=== PATIENT | male | born 1975 | race Caucasian/White ===

== ENCOUNTER 2018-11-21 10:27 | Inpatient (IN) ==
[2018-11-21] MEDS ORDERED: LORazepam 2 MG/1 ML VIAL IV STA (11:24)
[2018-11-21] MEDS ORDERED: THIAMINE INJ 100 MG, FOLIC ACID INJ 1 MG, MAGNESIUM SULF INJ 2 GM, MULTIVITAMIN INJ 10 ... IV ONE (11:24)
[2018-11-21 11:36] LABS: Basophils % 0.2 % (0.0-0.8); Hematocrit 46.9 VOL% (42.0-52.0); Hemoglobin 15.8 GM/DL (14.0-18.0); Immature Granulocytes Absolute 0.11 #; Lymphocytes # 0.8 10*3/uL (1.4-4.0); Lymphocytes % 6.7 % (21.2-54.2); Mean Corpuscular HGB Conc 33.7 GM/DL (32-36); Mean Corpuscular Hemoglobin 36 PG (27-34); Mean Corpuscular Volume 105.9 FL (87-102); Mean Platelet Volume 10.4 FL (9.6-12.0); Monocytes # 1.7 10*3/uL (0.11-0.8); Monocytes % 14.5 % (1.7-12.7); NRBC # 0.02 10*3/uL; Neutrophils # 8.8 10*3/uL (1.4-7.4); Neutrophils % 77.6 % (38.7-73.9); Platelet Count 114 T/CUMM (130-400); Red Blood Count 4.43 MC/CUMM (3.8-5.5); Red Cell Distribution Width 12.3 % (9.3-17.3); White Blood Count 11.4 T/CUMM (4-12)
[2018-11-21 11:55] LABS: Alanine Aminotransferase 109 U/L (16-61); Albumin 4.3 G/DL (3.4-5.0); Alkaline Phosphatase 104 U/L (45-117); Aspartate Amino Transferase 614 U/L (0-37); Blood Urea Nitrogen 35 MG/DL (7-18); Calcium 8.4 MG/DL (8.5-10.1); Glucose 78 MG/DL (74-106); Osmolality,Calculated 263.1 MOS/KG (273-304); Potassium 3.1 MMOL/L (3.5-5.1); Sodium 128 MMOL/L (136-145); Total Protein 9.1 G/DL (6.4-8.3)
[2018-11-21 13:12] LABS: Apearance,Urine CLOUDY (Clear); Bilirubin,Urine Negative (Negative); Blood, Urine Large mg/dL (Negative); Glucose,Urine (UA) Negative (Negative); Hyaline Casts,Urine 44 /LPF (0-3); Ketones,Urine 80 mg/dL (Negative); Mucus,Urine Occasional /LPF (Occasional); Nitrite,Urine Negative (Negative); Protein,Urine 100 MG/DL; RBC,Urine 1 /HPF (0-4); Urine Color Amber (Yellow); WBC,Urine 4 /HPF (0-6)
[2018-11-21 13:30] LABS: Barbiturates Screen,Urine Negative (Negative); Benzodiazepines Screen,Urine Negative (Negative); Cannabinoid Screen,Urine Negative (Negative); Opiate Screen,Urine Negative (Negative); Phencyclidine Screen,Urine Negative (Negative)
[2018-11-21] MEDS ORDERED: ONDANSETRON 4 MG/2 ML VIAL IV PRN (13:31)
[2018-11-21] MEDS ORDERED: NICOTINE 21 MG/24 HR PATCH TRANSDERM PRN (13:31)
[2018-11-21] MEDS: LORazepam 2 MG/1 ML VIAL IV PRN ×9 (13:33→22:26)
[2018-11-21] MEDS: DIAZEPAM 5 MG TABLET PO SCH ×7 (13:43→23:50)
[2018-11-21] MEDS: SODIUM CHLORIDE 0.9% 1,000 ML IV SCH ×3 (13:43→22:23)
[2018-11-21 14:18] LABS: CKMB % 0.2 %; Troponin I 0.064 NG/ML (0.00-0.045)
[2018-11-21] MEDS: PANTOPRAZOLE 40 MG TABLET PO SCH (15:38)
[2018-11-21] MEDS: ENOXAPARIN 40 MG/0.4 ML SYRINGE SUBCUT SCH (15:40)
[2018-11-21] MEDS ORDERED: OLANZapine 10 MG VIAL IM ONE (23:20)
[2018-11-22] MEDS ORDERED: HALOPERIDOL 5 MG/ML AMP IV ONE (01:29)
[2018-11-22] MEDS: LORazepam 2 MG/1 ML VIAL IV PRN ×7 (01:55→15:08)
[2018-11-22] MEDS: DIAZEPAM 5 MG TABLET PO SCH ×21 (02:33→23:15)
[2018-11-22] MEDS: SODIUM CHLORIDE 0.9% 1,000 ML IV SCH ×4 (04:55→18:18)
[2018-11-22 05:39] LABS: Basophils % 0.2 % (0.0-0.8); Eosinophils % 0.1 % (0.00-10.9); Hematocrit 39.7 VOL% (42.0-52.0); Immature Granulocytes % 0.9 %; Immature Granulocytes Absolute 0.08 #; Lymphocytes % 11.1 % (21.2-54.2); Mean Corpuscular HGB Conc 33.2 GM/DL (32-36); Mean Corpuscular Hemoglobin 36 PG (27-34); Mean Corpuscular Volume 107.9 FL (87-102); Mean Platelet Volume 10.2 FL (9.6-12.0); Monocytes # 1.8 10*3/uL (0.11-0.8); Monocytes % 19.2 % (1.7-12.7); Neutrophils # 6.4 10*3/uL (1.4-7.4); Neutrophils % 68.5 % (38.7-73.9); Platelet Count 114 T/CUMM (130-400); Red Blood Count 3.68 MC/CUMM (3.8-5.5); Red Cell Distribution Width 12.5 % (9.3-17.3); White Blood Count 9.4 T/CUMM (4-12)
[2018-11-22 05:54] LABS: Calcium 7.7 MG/DL (8.5-10.1); Potassium 3.9 MMOL/L (3.5-5.1)
[2018-11-22 05:55] LABS: Hemoglobin 13.2 GM/DL (14.0-18.0)
[2018-11-22 06:20] LABS: Lymphocytes 9 % (20-55); Platelet Estimate Decreased; Polychromasia Slight; Segmented Neutrophils 82 % (50-85); Total Cells Counted 100
[2018-11-22] MEDS: PANTOPRAZOLE 40 MG TABLET PO SCH (08:50)
[2018-11-22] MEDS ORDERED: HALOPERIDOL 5 MG/ML AMP IV PRN (09:16)
[2018-11-22] MEDS: ENOXAPARIN 40 MG/0.4 ML SYRINGE SUBCUT SCH (14:22)
[2018-11-23] MEDS: DIAZEPAM 5 MG TABLET PO SCH ×23 (00:22→22:12)
[2018-11-23] MEDS: SODIUM CHLORIDE 0.9% 1,000 ML IV SCH ×2 (00:35→07:49)
[2018-11-23] MEDS: DEXTROSE 5% LACTATED RINGERS 1,000 ML IV SCH ×3 (09:51→23:38)
[2018-11-23] MEDS: PANTOPRAZOLE 40 MG TABLET PO SCH (12:15)
[2018-11-23] MEDS: ENOXAPARIN 40 MG/0.4 ML SYRINGE SUBCUT SCH (16:04)
[2018-11-24] MEDS: DIAZEPAM 5 MG TABLET PO SCH ×10 (00:24→08:59)
[2018-11-24 03:26] LABS: Basophils % 0.4 % (0.0-0.8); Eosinophils # 0.1 10*3/uL (0.0-0.87); Eosinophils % 1.8 % (0.00-10.9); Hematocrit 35.5 VOL% (42.0-52.0); Immature Granulocytes % 0.6 %; Immature Granulocytes Absolute 0.03 #; Lymphocytes # 0.7 10*3/uL (1.4-4.0); Lymphocytes % 14.7 % (21.2-54.2); Mean Corpuscular HGB Conc 33.8 GM/DL (32-36); Mean Corpuscular Hemoglobin 35 PG (27-34); Mean Corpuscular Volume 104.1 FL (87-102); Mean Platelet Volume 9.5 FL (9.6-12.0); Monocytes # 1.2 10*3/uL (0.11-0.8); Monocytes % 24.5 % (1.7-12.7); Neutrophils # 2.8 10*3/uL (1.4-7.4); Platelet Count 146 T/CUMM (130-400); Red Blood Count 3.41 MC/CUMM (3.8-5.5); Red Cell Distribution Width 12.7 % (9.3-17.3); White Blood Count 4.9 T/CUMM (4-12)
[2018-11-24 03:40] LABS: Calcium 7.8 MG/DL (8.5-10.1); Osmolality,Calculated 280.4 MOS/KG (273-304)
[2018-11-24 03:44] LABS: Potassium 2.5 MMOL/L (3.5-5.1)
[2018-11-24 03:49] LABS: Band Neutrophils 1 % (0-10); Eosinophils 5 % (0-10); Lymphocytes 15 % (20-55); Segmented Neutrophils 59 % (50-85); Total Cells Counted 100
[2018-11-24 04:00] LABS: Atypical Lymphocytes 1+; Platelet Estimate Normal
[2018-11-24] MEDS ORDERED: POTASSIUM CHLORIDE 20 MEQ TABLET PO ONE (04:00)
[2018-11-24] MEDS: POTASSIUM CHLORIDE RIDER 10 MEQ in PREMIX 1 EACH IV SCH ×4 (04:26→07:33)
[2018-11-24] MEDS: PANTOPRAZOLE 40 MG TABLET PO SCH (08:58)
[2018-11-24] MEDS: POTASSIUM CHLORIDE 20 MEQ TABLET PO SCH ×4 (11:43→20:38)
[2018-11-24] MEDS: DEXTROSE 5% LACTATED RINGERS 1,000 ML IV SCH ×2 (11:45→18:37)
[2018-11-24] MEDS: ENOXAPARIN 40 MG/0.4 ML SYRINGE SUBCUT SCH (14:17)
[2018-11-24] MEDS: DIAZEPAM 5 MG TABLET PO PRN (20:38)
[2018-11-25] MEDS: DEXTROSE 5% LACTATED RINGERS 1,000 ML IV SCH ×2 (01:41→04:56)
[2018-11-25 05:04] LABS: Eosinophils # 0.1 10*3/uL (0.0-0.87); Eosinophils % 2.7 % (0.00-10.9); Hematocrit 34.2 VOL% (42.0-52.0); Hemoglobin 11.7 GM/DL (14.0-18.0); Immature Granulocytes % 1.2 %; Immature Granulocytes Absolute 0.05 #; Lymphocytes % 23.5 % (21.2-54.2); Mean Corpuscular HGB Conc 34.2 GM/DL (32-36); Mean Corpuscular Hemoglobin 36 PG (27-34); Mean Corpuscular Volume 105.9 FL (87-102); Mean Platelet Volume 9.5 FL (9.6-12.0); Monocytes % 25.2 % (1.7-12.7); Neutrophils # 1.9 10*3/uL (1.4-7.4); Neutrophils % 46.4 % (38.7-73.9); Platelet Count 168 T/CUMM (130-400); Red Blood Count 3.23 MC/CUMM (3.8-5.5); Red Cell Distribution Width 12.5 % (9.3-17.3); White Blood Count 4.1 T/CUMM (4-12)
[2018-11-25 05:18] LABS: Calcium 7.9 MG/DL (8.5-10.1)
[2018-11-25 05:47] LABS: Eosinophils 2 % (0-10); Hypochromasia Slight; Lymphocytes 24 % (20-55); Platelet Estimate Adequate; Segmented Neutrophils 67 % (50-85); Total Cells Counted 100
[2018-11-25] MEDS: POTASSIUM CHLORIDE 20 MEQ TABLET PO SCH ×4 (06:45→18:12)
[2018-11-25 07:34] LABS: Albumin 2.5 G/DL (3.4-5.0); Bilirubin,Direct 0.26 MG/DL (0.0-0.20); Bilirubin,Indirect 0.3 MG/DL (0.0-1.0); Bilirubin,Total 0.6 MG/DL (0.2-1.0); Total Protein 5.9 G/DL (6.4-8.3)
[2018-11-25] MEDS: DIAZEPAM 5 MG TABLET PO SCH (09:28)
[2018-11-25] MEDS: PANTOPRAZOLE 40 MG TABLET PO SCH (09:57)
[2018-11-25] MEDS: ENOXAPARIN 40 MG/0.4 ML SYRINGE SUBCUT SCH (13:53)
[2018-11-26 05:44] LABS: Calcium 8.3 MG/DL (8.5-10.1); Osmolality,Calculated 276.4 MOS/KG (273-304); Potassium 3.5 MMOL/L (3.5-5.1)
[2018-11-26] MEDS ORDERED: INFLUENZA VIRUS VACCINE 0.5 ML SYRINGE IM ONE (09:00)
[2018-11-26] MEDS: PANTOPRAZOLE 40 MG TABLET PO SCH (09:41)
[2018-11-26] MEDS: ENOXAPARIN 40 MG/0.4 ML SYRINGE SUBCUT SCH (14:09)
[2018-11-26] MEDS: DIAZEPAM 5 MG TABLET PO PRN (21:12)
[2018-11-27 05:10] LABS: Basophils # 0.1 10*3/uL (0.0-0.2); Eosinophils # 0.1 10*3/uL (0.0-0.87); Eosinophils % 2.3 % (0.00-10.9); Hematocrit 40.5 VOL% (42.0-52.0); Hemoglobin 13.6 GM/DL (14.0-18.0); Immature Granulocytes % 1.5 %; Immature Granulocytes Absolute 0.09 #; Lymphocytes # 1.4 10*3/uL (1.4-4.0); Lymphocytes % 21.8 % (21.2-54.2); Mean Corpuscular HGB Conc 33.6 GM/DL (32-36); Mean Corpuscular Hemoglobin 35 PG (27-34); Mean Corpuscular Volume 104.4 FL (87-102); Mean Platelet Volume 9.9 FL (9.6-12.0); Monocytes # 1.8 10*3/uL (0.11-0.8); Monocytes % 29.2 % (1.7-12.7); Neutrophils # 2.7 10*3/uL (1.4-7.4); Neutrophils % 44.2 % (38.7-73.9); Red Cell Distribution Width 12.4 % (9.3-17.3)
[2018-11-27 05:16] LABS: White Blood Count 6.2 T/CUMM (4-12)
[2018-11-27 05:17] LABS: Platelet Count 303 T/CUMM (130-400); Red Blood Count 3.88 MC/CUMM (3.8-5.5)
[2018-11-27 05:38] LABS: Eosinophils 7 % (0-10); Hypochromasia 1+; Lymphocytes 21 % (20-55); Platelet Estimate Adequate; Segmented Neutrophils 50 % (50-85); Total Cells Counted 100
[2018-11-27 05:49] LABS: Calcium 8.9 MG/DL (8.5-10.1); Osmolality,Calculated 273.7 MOS/KG (273-304); Potassium 3.6 MMOL/L (3.5-5.1)
[2018-11-27] MEDS: PANTOPRAZOLE 40 MG TABLET PO SCH (12:49)
[2018-11-27] MEDS: ENOXAPARIN 40 MG/0.4 ML SYRINGE SUBCUT SCH (16:05)
[2018-11-27] MEDS: DIAZEPAM 5 MG TABLET PO PRN (21:42)
[2018-11-28 04:20] LABS: Basophils # 0.1 10*3/uL (0.0-0.2); Basophils % 1.2 % (0.0-0.8); Eosinophils # 0.1 10*3/uL (0.0-0.87); Eosinophils % 1.6 % (0.00-10.9); Hematocrit 41.1 VOL% (42.0-52.0); Hemoglobin 13.5 GM/DL (14.0-18.0); Immature Granulocytes Absolute 0.07 #; Lymphocytes # 1.4 10*3/uL (1.4-4.0); Lymphocytes % 20.6 % (21.2-54.2); Mean Corpuscular HGB Conc 32.8 GM/DL (32-36); Mean Corpuscular Hemoglobin 35 PG (27-34); Mean Corpuscular Volume 105.9 FL (87-102); Mean Platelet Volume 9.4 FL (9.6-12.0); Monocytes # 1.9 10*3/uL (0.11-0.8); Monocytes % 28.8 % (1.7-12.7); NRBC # 0.03 10*3/uL; Neutrophils # 3.1 10*3/uL (1.4-7.4); Neutrophils % 46.8 % (38.7-73.9); Platelet Count 340 T/CUMM (130-400); Red Blood Count 3.88 MC/CUMM (3.8-5.5); Red Cell Distribution Width 12.5 % (9.3-17.3); White Blood Count 6.7 T/CUMM (4-12)
[2018-11-28 04:56] LABS: Calcium 8.7 MG/DL (8.5-10.1); Osmolality,Calculated 275.7 MOS/KG (273-304); Potassium 3.5 MMOL/L (3.5-5.1)
[2018-11-28 05:13] LABS: Band Neutrophils 3 % (0-10); Lymphocytes 21 % (20-55); Platelet Estimate Normal; Segmented Neutrophils 53 % (50-85); Total Cells Counted 100
[2018-11-28 05:14] LABS: Anisocytosis 1+; Macrocytosis 1+
[2018-11-28] MEDS: PANTOPRAZOLE 40 MG TABLET PO SCH (09:41)
[2018-11-28] MEDS: ENOXAPARIN 40 MG/0.4 ML SYRINGE SUBCUT SCH (14:47)
[2018-11-28] MEDS: DIAZEPAM 5 MG TABLET PO PRN (21:03)
[2018-11-29 08:59] VITALS: BP 103/61
[2018-11-29] MEDS: PANTOPRAZOLE 40 MG TABLET PO SCH (09:49)
== END 2018-11-29 13:10 | disposition home or self-care (01) | DRG 897 ==
LOC: N.ED 10:27 → N.EDINP 13:13 → SUATTDRO 13:13 → N.CC 17:03
PROVIDERS: ADMIT Internal Medicine; ATTEND Internal Medicine

== ENCOUNTER 2019-09-01 16:25 | Inpatient (IN) ==
[2019-09-01] MEDS ORDERED: ONDANSETRON 4 MG/2 ML VIAL ONE (17:09)
[2019-09-01] MEDS ORDERED: THIAMINE INJ 100 MG, FOLIC ACID INJ 1 MG, MAGNESIUM SULF INJ 2 GM, MULTIVITAMIN INJ 10 ... IV ONE (17:19)
[2019-09-01] MEDS ORDERED: ONDANSETRON 4 MG/2 ML VIAL IV STA (17:27)
[2019-09-01 17:51] LABS: Basophils % 0.4 % (0.0-0.8); Hematocrit 40.8 VOL% (42.0-52.0); Hemoglobin 14.6 GM/DL (14.0-18.0); Immature Granulocytes % 0.8 %; Immature Granulocytes Absolute 0.06 #; Lymphocytes # 0.5 10*3/uL (1.4-4.0); Lymphocytes % 6.8 % (21.2-54.2); Mean Corpuscular HGB Conc 35.8 GM/DL (32-36); Mean Corpuscular Volume 93.6 FL (87-102); Monocytes % 12.3 % (1.7-12.7); Neutrophils % 79.7 % (38.7-73.9); Red Blood Count 4.36 MC/CUMM (3.8-5.5); Red Cell Distribution Width 13.8 % (9.3-17.3); White Blood Count 7.5 T/CUMM (4-12)
[2019-09-01 18:10] LABS: Platelet Count 55 T/CUMM (130-400); Platelet Estimate Decreased
[2019-09-01 18:13] LABS: Alanine Aminotransferase 51 U/L (16-61); Albumin 4.1 G/DL (3.4-5.0); Alkaline Phosphatase 83 U/L (45-117); Aspartate Amino Transferase 104 U/L (0-37); Blood Urea Nitrogen 15 MG/DL (7-18); Calcium 9.2 MG/DL (8.5-10.1); Estimated Glom Filtration Rate 145 ML/MIN; Glucose 187 MG/DL (74-106); Osmolality,Calculated 263.9 MOS/KG (273-304); Total Protein 8.3 G/DL (6.4-8.3)
[2019-09-01] MEDS ORDERED: LORazepam 2 MG/1 ML VIAL IV STA (18:18)
[2019-09-01 18:31] LABS: Apearance,Urine CLEAR (Clear); Blood, Urine Negative (Negative); Calcium Oxalate Crystals,Urine Occasional /HPF (Few); Glucose,Urine (UA) 50 mg/dL (Negative); Ketones,Urine 20 mg/dL (Negative); Mucus,Urine Few /LPF (Occasional); Nitrite,Urine Negative (Negative); Protein,Urine 100 MG/DL; RBC,Urine 2 /HPF (0-4); Squamous Epithelial Cell,Urine Occasional /HPF (0-10); Urine Specific Gravity 1.025 (1.001-1.035); WBC,Urine 1 /HPF (0-6)
[2019-09-01 18:32] LABS: Bilirubin,Urine Small mg/dL (Negative); Urine Color Yellow (Yellow)
[2019-09-01 18:44] LABS: Barbiturates Screen,Urine Negative (Negative); Benzodiazepines Screen,Urine Positive (Negative); Cannabinoid Screen,Urine Negative (Negative); Opiate Screen,Urine Negative (Negative); Phencyclidine Screen,Urine Negative (Negative)
[2019-09-01] MEDS ORDERED: ONDANSETRON 4 MG/2 ML VIAL IV PRN (19:31)
[2019-09-01] MEDS ORDERED: ALBUTEROL 2.5 MG/3 ML NEB RESP TX PRN (19:31)
[2019-09-01] MEDS ORDERED: ZALEPLON 5 MG CAPSULE PO PRN (19:37)
[2019-09-01] MEDS ORDERED: ENOXAPARIN 40 MG/0.4 ML SYRINGE SUBCUT SCH (20:00)
[2019-09-01] MEDS: SODIUM CHLORIDE 0.9% 1,000 ML IV SCH (21:10)
[2019-09-01] MEDS: PANTOPRAZOLE 40 MG VIAL IV SCH (21:10)
[2019-09-01] MEDS ORDERED: INFLUENZA VIRUS VACCINE 0.5 ML SYRINGE IM ONE (22:00)
[2019-09-01] MEDS: ACETAMINOPHEN 325 MG TABLET PO PRN (22:07)
[2019-09-01] MEDS: LORazepam 1 MG TABLET PO SCH (22:07)
[2019-09-02] MEDS: ACETAMINOPHEN 325 MG TABLET PO PRN ×2 (04:26→19:41)
[2019-09-02] MEDS: LORazepam 2 MG/1 ML VIAL IV PRN ×3 (04:27→18:40)
[2019-09-02] MEDS: SODIUM CHLORIDE 0.9% 1,000 ML IV SCH ×2 (04:36→15:23)
[2019-09-02 04:45] LABS: Basophils % 0.2 % (0.0-0.8); Hematocrit 36.1 VOL% (42.0-52.0); Hemoglobin 12.4 GM/DL (14.0-18.0); Immature Granulocytes % 0.5 %; Immature Granulocytes Absolute 0.03 #; Lymphocytes # 0.6 10*3/uL (1.4-4.0); Lymphocytes % 10.9 % (21.2-54.2); Mean Corpuscular HGB Conc 34.3 GM/DL (32-36); Mean Corpuscular Volume 95.3 FL (87-102); Mean Platelet Volume 11.6 FL (9.6-12.0); Monocytes % 19.7 % (1.7-12.7); Neutrophils % 68.7 % (38.7-73.9); Red Blood Count 3.79 MC/CUMM (3.8-5.5); White Blood Count 5.8 T/CUMM (4-12)
[2019-09-02 04:49] LABS: Platelet Count 39 T/CUMM (130-400)
[2019-09-02 05:09] LABS: Risk Ratio 2.05; Thyroid Stimulating Hormone 1.03 uIU/ml (0.358-3.74)
[2019-09-02 05:10] LABS: Band Neutrophils 1 % (0-10); Hypochromasia 1+; Lymphocytes 10 % (20-55); Platelet Estimate Decreased; Segmented Neutrophils 75 % (50-85); Total Cells Counted 100
[2019-09-02 05:19] LABS: Folate 15.7 NG/ML (5.4-24.0)
[2019-09-02] MEDS: FONDAPARINUX 2.5 MG/0.5 ML SYRINGE SUBCUT SCH (09:37)
[2019-09-02] MEDS: LACTULOSE 20 GM/30 ML UDCUP PO SCH ×2 (09:37→23:43)
[2019-09-02] MEDS: LORazepam 1 MG TABLET PO SCH ×4 (09:37→23:43)
[2019-09-02 11:23] LABS: Calcium 8.7 MG/DL (8.5-10.1); Osmolality,Calculated 263.4 MOS/KG (273-304)
[2019-09-02] MEDS: LIDOCAINE 2% VISCOUS 100 ML BOTTLE SWISH/SPIT SCH ×2 (11:29→16:39)
[2019-09-02] MEDS: NICOTINE 21 MG/24 HR PATCH TRANSDERM SCH (15:10)
[2019-09-02] MEDS ORDERED: LORazepam 2 MG/1 ML VIAL IV PRN (17:24)
[2019-09-02] MEDS: THIAMINE INJ 100 MG, FOLIC ACID INJ 1 MG, MAGNESIUM SULF INJ 2 GM, MULTIVITAMIN INJ 10 ... IV SCH (18:10)
[2019-09-02] MEDS ORDERED: HALOPERIDOL 5 MG/ML AMP ONE (19:31)
[2019-09-02] MEDS: HALOPERIDOL 5 MG/ML AMP IV PRN (19:36)
[2019-09-02] MEDS ORDERED: POTASSIUM CHLORIDE RIDER 20 MEQ in PREMIX 1 EACH IV PRN (19:50)
[2019-09-02] MEDS ORDERED: POTASSIUM CHLORIDE RIDER 100 ML IV ONE ×2 (21:07→21:08)
[2019-09-02] MEDS: POTASSIUM CHLORIDE RIDER 10 MEQ in PREMIX 1 EACH IV PRN ×3 (21:20→23:18)
[2019-09-02] MEDS: PANTOPRAZOLE 40 MG VIAL IV SCH (21:21)
[2019-09-03] MEDS: SODIUM CHLORIDE 0.9% 1,000 ML IV SCH ×3 (00:13→20:26)
[2019-09-03] MEDS: POTASSIUM CHLORIDE RIDER 10 MEQ in PREMIX 1 EACH IV PRN (00:23)
[2019-09-03] MEDS: POTASSIUM CHLORIDE 20 MEQ TABLET PO PRN ×6 (05:27→23:23)
[2019-09-03] MEDS: LIDOCAINE 2% VISCOUS 100 ML BOTTLE SWISH/SPIT SCH ×3 (08:33→17:45)
[2019-09-03] MEDS: NICOTINE 21 MG/24 HR PATCH TRANSDERM SCH (08:33)
[2019-09-03] MEDS: LACTULOSE 20 GM/30 ML UDCUP PO SCH ×2 (08:33→20:26)
[2019-09-03] MEDS: LORazepam 1 MG TABLET PO SCH (08:34)
[2019-09-03] MEDS: FONDAPARINUX 2.5 MG/0.5 ML SYRINGE SUBCUT SCH (08:34)
[2019-09-03] MEDS: chlordiazePOXIDE 25 MG CAPSULE PO SCH ×3 (11:57→23:23)
[2019-09-03 12:24] LABS: Basophils % 0.4 % (0.0-0.8); Eosinophils # 0.1 10*3/uL (0.0-0.87); Hemoglobin 13.1 GM/DL (14.0-18.0); Immature Granulocytes % 0.8 %; Immature Granulocytes Absolute 0.06 #; Lymphocytes # 1.1 10*3/uL (1.4-4.0); Lymphocytes % 15.2 % (21.2-54.2); Mean Corpuscular HGB Conc 34.5 GM/DL (32-36); Mean Corpuscular Volume 96.9 FL (87-102); Monocytes % 18.4 % (1.7-12.7); NRBC # 0.02 10*3/uL; Neutrophils % 64.2 % (38.7-73.9); Red Blood Count 3.92 MC/CUMM (3.8-5.5); White Blood Count 7.1 T/CUMM (4-12)
[2019-09-03 12:28] LABS: Platelet Count 75 T/CUMM (130-400)
[2019-09-03 12:40] LABS: Calcium 8.5 MG/DL (8.5-10.1)
[2019-09-03 13:06] LABS: Eosinophils 1 % (0-10); Lymphocytes 25 % (20-55); Segmented Neutrophils 62 % (50-85); Total Cells Counted 100
[2019-09-03 13:07] LABS: Platelet Estimate Decreased
[2019-09-03] MEDS: THIAMINE INJ 100 MG, FOLIC ACID INJ 1 MG, MAGNESIUM SULF INJ 2 GM, MULTIVITAMIN INJ 10 ... IV SCH (18:16)
[2019-09-03] MEDS: PANTOPRAZOLE 40 MG VIAL IV SCH (20:27)
[2019-09-04] MEDS: HALOPERIDOL 5 MG/ML AMP IV PRN (02:26)
[2019-09-04] MEDS: SODIUM CHLORIDE 0.9% 1,000 ML IV SCH ×3 (04:31→23:00)
[2019-09-04 05:26] LABS: Basophils # 0.1 10*3/uL (0.0-0.2); Basophils % 1.1 % (0.0-0.8); Eosinophils # 0.1 10*3/uL (0.0-0.87); Hematocrit 37.9 VOL% (42.0-52.0); Hemoglobin 12.9 GM/DL (14.0-18.0); Immature Granulocytes % 1.1 %; Immature Granulocytes Absolute 0.07 #; Lymphocytes # 1.2 10*3/uL (1.4-4.0); Mean Corpuscular Volume 96.9 FL (87-102); Mean Platelet Volume 9.7 FL (9.6-12.0); Monocytes % 19.5 % (1.7-12.7); Neutrophils % 58.3 % (38.7-73.9); Platelet Count 105 T/CUMM (130-400); Red Blood Count 3.91 MC/CUMM (3.8-5.5); Red Cell Distribution Width 14.1 % (9.3-17.3); White Blood Count 6.5 T/CUMM (4-12)
[2019-09-04 05:43] LABS: Calcium 8.1 MG/DL (8.5-10.1); Osmolality,Calculated 275.5 MOS/KG (273-304)
[2019-09-04 06:21] LABS: Anisocytosis Slight; Band Neutrophils 2 % (0-10); Eosinophils 2 % (0-10); Lymphocytes 16 % (20-55); Macrocytosis Slight; Metamyelocytes 1 %; Platelet Estimate Decreased; Segmented Neutrophils 63 % (50-85); Total Cells Counted 100
[2019-09-04] MEDS: chlordiazePOXIDE 25 MG CAPSULE PO SCH ×3 (07:10→17:23)
[2019-09-04] MEDS: FONDAPARINUX 2.5 MG/0.5 ML SYRINGE SUBCUT SCH (08:00)
[2019-09-04] MEDS: NICOTINE 21 MG/24 HR PATCH TRANSDERM SCH (08:00)
[2019-09-04] MEDS: LIDOCAINE 2% VISCOUS 100 ML BOTTLE SWISH/SPIT SCH ×4 (08:00→17:23)
[2019-09-04] MEDS: POTASSIUM CHLORIDE 20 MEQ TABLET PO PRN ×2 (08:00→10:30)
[2019-09-04] MEDS: LACTULOSE 20 GM/30 ML UDCUP PO SCH ×2 (08:19→20:13)
[2019-09-04] MEDS: LORazepam 2 MG/1 ML VIAL IV PRN (22:56)
[2019-09-05 07:33] VITALS: BP 132/87
[2019-09-05] MEDS: LIDOCAINE 2% VISCOUS 100 ML BOTTLE SWISH/SPIT SCH ×2 (08:27→12:38)
[2019-09-05] MEDS ORDERED: chlordiazePOXIDE 25 MG CAPSULE PO SCH ×2 (09:00→09:30)
[2019-09-05] MEDS ORDERED: PANTOPRAZOLE 40 MG TABLET PO SCH (09:00)
[2019-09-05] MEDS: FONDAPARINUX 2.5 MG/0.5 ML SYRINGE SUBCUT SCH (10:02)
[2019-09-05] MEDS: LACTULOSE 20 GM/30 ML UDCUP PO SCH (10:02)
[2019-09-05] MEDS: NICOTINE 21 MG/24 HR PATCH TRANSDERM SCH (10:03)
[2019-09-05] MEDS: SODIUM CHLORIDE 0.9% 1,000 ML IV SCH (13:04)
== END 2019-09-05 13:31 | disposition home or self-care (01) | DRG 897 ==
LOC: EDUNIT# → N.ED 16:25 → SUATTDRO 19:31 → N.EDINP 19:31 → N.CC 20:55 → N.5E 09-04 10:56
PROVIDERS: ADMIT Internal Medicine; ATTEND Internal Medicine

== ENCOUNTER 2019-11-20 00:30 | Observation (INO) ==
[2019-11-20] MEDS ORDERED: METOCLOPRAMIDE 10 MG/2 ML VIAL IV STA (00:55)
[2019-11-20] MEDS ORDERED: ONDANSETRON 4 MG/2 ML VIAL IV STA (00:55)
[2019-11-20] MEDS ORDERED: THIAMINE INJ 100 MG, FOLIC ACID INJ 1 MG, MAGNESIUM SULF INJ 2 GM, MULTIVITAMIN INJ 10 ... IV STA (00:55)
[2019-11-20] MEDS ORDERED: PANTOPRAZOLE 40 MG VIAL IV STA (00:55)
[2019-11-20 01:14] LABS: Basophils % 0.9 % (0.0-0.8); Eosinophils # 0.1 10*3/uL (0.0-0.87); Eosinophils % 1.5 % (0.00-10.9); Hematocrit 44.6 VOL% (42.0-52.0); Hemoglobin 14.8 GM/DL (14.0-18.0); Immature Granulocytes % 0.3 %; Immature Granulocytes Absolute 0.01 #; Lymphocytes # 1.8 10*3/uL (1.4-4.0); Lymphocytes % 56.7 % (21.2-54.2); Mean Corpuscular HGB Conc 33.2 GM/DL (32-36); Mean Corpuscular Volume 107.2 FL (87-102); Mean Platelet Volume 9.8 FL (9.6-12.0); Monocytes % 12.1 % (1.7-12.7); Neutrophils % 28.5 % (38.7-73.9); Platelet Count 77 T/CUMM (130-400); Red Blood Count 4.16 MC/CUMM (3.8-5.5); White Blood Count 3.2 T/CUMM (4-12)
[2019-11-20 01:20] LABS: Apearance,Urine CLEAR (Clear); Bilirubin,Urine Negative (Negative); Blood, Urine Negative (Negative); Glucose,Urine (UA) Negative (Negative); Ketones,Urine Negative (Negative); Nitrite,Urine Negative (Negative); Protein,Urine Negative; RBC,Urine 4 /HPF (0-4); Urine Color Straw (Yellow); Urine Specific Gravity 1.004 (1.001-1.035); Urine Urobilinogen < 2.0 EU/DL (0.2-1.0)
[2019-11-20 01:23] LABS: PT Patient Result 10.4 SECS (9.6-12.2); Partial Thromboplastin Time 25.9 SECS (20.8-36.0)
[2019-11-20 01:25] LABS: Barbiturates Screen,Urine Negative (Negative); Benzodiazepines Screen,Urine Positive (Negative); Cannabinoid Screen,Urine Negative (Negative); Opiate Screen,Urine Negative (Negative); Phencyclidine Screen,Urine Negative (Negative)
[2019-11-20] MEDS ORDERED: SODIUM CHLORIDE 0.9% 1,000 ML IV STA (01:42)
[2019-11-20 01:51] LABS: Bilirubin,Total 0.7 MG/DL (0.2-1.0); Calcium 8.4 MG/DL (8.5-10.1); Osmolality,Calculated 281.1 MOS/KG (273-304); Total Protein 7.8 G/DL (6.4-8.3)
[2019-11-20 02:13] LABS: Band Neutrophils 2 % (0-10); Eosinophils 4 % (0-10); Lymphocytes 58 % (20-55); Segmented Neutrophils 29 % (50-85); Total Cells Counted 100
[2019-11-20 02:14] LABS: Anisocytosis 1+; Platelet Estimate Decreased
[2019-11-20] MEDS ORDERED: ACETAMINOPHEN 325 MG TABLET PO PRN (03:37)
[2019-11-20] MEDS: MULTIVITAMIN IV SCH ×3 (04:54→13:09)
[2019-11-20] MEDS: SODIUM CHLORIDE IV SCH ×3 (04:54→13:09)
[2019-11-20] MEDS: THIAMINE IV SCH ×3 (04:54→13:09)
[2019-11-20] MEDS ORDERED: INFLUENZA VIRUS VACCINE 0.5 ML SYRINGE IM ONE (05:31)
[2019-11-20 06:09] LABS: Basophils % 1.2 % (0.0-0.8); Eosinophils % 1.2 % (0.00-10.9); Hematocrit 39.7 VOL% (42.0-52.0); Hemoglobin 13.3 GM/DL (14.0-18.0); Immature Granulocytes % 0.4 %; Immature Granulocytes Absolute 0.01 #; Lymphocytes # 1.1 10*3/uL (1.4-4.0); Mean Corpuscular HGB Conc 33.5 GM/DL (32-36); Mean Corpuscular Volume 107.9 FL (87-102); Mean Platelet Volume 9.2 FL (9.6-12.0); Monocytes % 12.9 % (1.7-12.7); Neutrophils % 41.3 % (38.7-73.9); Platelet Count 59 T/CUMM (130-400); Red Blood Count 3.68 MC/CUMM (3.8-5.5); Red Cell Distribution Width 15.1 % (9.3-17.3); White Blood Count 2.5 T/CUMM (4-12)
[2019-11-20 06:28] LABS: Eosinophils 1 % (0-10); Hypochromasia Slight; Lymphocytes 43 % (20-55); Nucleated Red Blood Cells 1 (0-5); Platelet Estimate Decreased; Segmented Neutrophils 47 % (50-85); Total Cells Counted 100
[2019-11-20 06:31] LABS: Calcium 7.6 MG/DL (8.5-10.1)
[2019-11-20] MEDS ORDERED: PANTOPRAZOLE 40 MG TABLET PO SCH (09:00)
[2019-11-20] MEDS: LORazepam 2 MG/1 ML VIAL IV PRN ×3 (09:07→16:21)
[2019-11-20] MEDS: ONDANSETRON 4 MG/2 ML VIAL IV PRN ×2 (10:38→14:13)
[2019-11-20 12:40] VITALS: BP 115/67
[2019-11-20] MEDS ORDERED: chlordiazePOXIDE 25 MG CAPSULE PO ONE (15:28)
[2019-11-20] MEDS ORDERED: THIAMINE INJ 100 MG, MULTIVITAMIN INJ 10 ML in SODIUM CHLORIDE 0.9% 1,000 ML IV SCH (16:30)
[2019-11-20] MEDS ORDERED: SODIUM CHLORIDE 0.9% IV SCH (16:30)
[2019-11-20] MEDS ORDERED: THIAMINE IV SCH (16:30)
[2019-11-20] MEDS ORDERED: MULTIVITAMIN IV SCH (16:30)
== END 2019-11-20 17:07 | disposition home or self-care (01) ==
LOC: EDUNIT# → EDBD → N.ED 00:30 → N.EDINP 00:30 → N.4E 04:36
PROVIDERS: ADMIT Internal Medicine; ATTEND Internal Medicine

== ENCOUNTER 2019-11-20 23:41 | Observation (INO) ==
[2019-11-21] MEDS ORDERED: ONDANSETRON 4 MG/2 ML VIAL IV STA (00:02)
[2019-11-21] MEDS ORDERED: SODIUM CHLORIDE 0.9% 2,000 ML IV STA (00:02)
[2019-11-21] MEDS ORDERED: METOCLOPRAMIDE 10 MG/2 ML VIAL IV STA (00:02)
[2019-11-21] MEDS ORDERED: LORazepam 2 MG/1 ML VIAL IV STA (00:02)
[2019-11-21] MEDS ORDERED: PANTOPRAZOLE 40 MG VIAL IV STA (00:02)
[2019-11-21 00:56] LABS: Basophils % 0.8 % (0.0-0.8); Eosinophils % 0.3 % (0.00-10.9); Hematocrit 38.4 VOL% (42.0-52.0); Hemoglobin 13.2 GM/DL (14.0-18.0); Immature Granulocytes % 1.1 %; Immature Granulocytes Absolute 0.04 #; Lymphocytes # 0.7 10*3/uL (1.4-4.0); Lymphocytes % 19.2 % (21.2-54.2); Mean Corpuscular HGB Conc 34.4 GM/DL (32-36); Mean Corpuscular Volume 104.1 FL (87-102); Mean Platelet Volume 9.8 FL (9.6-12.0); Monocytes % 11.5 % (1.7-12.7); Neutrophils % 67.1 % (38.7-73.9); Platelet Count 56 T/CUMM (130-400); Red Blood Count 3.69 MC/CUMM (3.8-5.5); Red Cell Distribution Width 14.6 % (9.3-17.3); White Blood Count 3.8 T/CUMM (4-12)
[2019-11-21 00:58] LABS: Apearance,Urine CLEAR (Clear); Bilirubin,Urine Negative (Negative); Blood, Urine Negative (Negative); Glucose,Urine (UA) Negative (Negative); Ketones,Urine 20 mg/dL (Negative); Nitrite,Urine Negative (Negative); Protein,Urine Negative; RBC,Urine <1 /HPF (0-4); Urine Color Yellow (Yellow); Urine Specific Gravity 1.016 (1.001-1.035); WBC,Urine <1 /HPF (0-6)
[2019-11-21 01:14] LABS: Alanine Aminotransferase 45 U/L (16-61); Albumin 3.6 G/DL (3.4-5.0); Alkaline Phosphatase 55 U/L (45-117); Amylase 29 U/L (25-115); Aspartate Amino Transferase 87 U/L (0-37); Blood Urea Nitrogen 9 MG/DL (7-18); Calcium 8.4 MG/DL (8.5-10.1); Estimated Glom Filtration Rate 159 ML/MIN; Glucose 92 MG/DL (74-106); Osmolality,Calculated 266.2 MOS/KG (273-304); Total Protein 7.2 G/DL (6.4-8.3); Troponin I < 0.015 NG/ML (0.00-0.045)
[2019-11-21 01:21] LABS: Macrocytosis 1+; Platelet Estimate Decreased
[2019-11-21 01:22] LABS: Anisocytosis Slight; Hypochromasia Slight; Target Cells Few
[2019-11-21] MEDS ORDERED: chlordiazePOXIDE 25 MG CAPSULE PO PRN (02:17)
[2019-11-21] MEDS ORDERED: NICOTINE 21 MG/24 HR PATCH TRANSDERM PRN (02:17)
[2019-11-21] MEDS ORDERED: ACETAMINOPHEN 325 MG TABLET PO PRN (02:17)
[2019-11-21 03:15] LABS: Barbiturates Screen,Urine Negative (Negative); Benzodiazepines Screen,Urine Positive (Negative); Cannabinoid Screen,Urine Negative (Negative); Opiate Screen,Urine Negative (Negative); Phencyclidine Screen,Urine Negative (Negative)
[2019-11-21] MEDS ORDERED: INFLUENZA VIRUS VACCINE 0.5 ML SYRINGE IM ONE (04:20)
[2019-11-21] MEDS ORDERED: PNEUMOCOCCAL VACCINE (23 VALENT) 0.5 ML VIAL IM ONE (04:24)
[2019-11-21] MEDS: ONDANSETRON 4 MG/2 ML VIAL IV PRN ×2 (04:37→14:20)
[2019-11-21] MEDS: SODIUM CHLORIDE 0.9% 1,000 ML IV SCH ×3 (04:46→18:31)
[2019-11-21] MEDS: LORazepam 2 MG/1 ML VIAL IV PRN ×2 (06:23→18:32)
[2019-11-21] MEDS ORDERED: POTASSIUM CHLORIDE 20 MEQ TABLET PO PRN (07:43)
[2019-11-21] MEDS: chlordiazePOXIDE 25 MG CAPSULE PO SCH ×3 (14:20→20:54)
[2019-11-22] MEDS: LORazepam 2 MG/1 ML VIAL IV PRN ×2 (00:32→04:32)
[2019-11-22] MEDS: SODIUM CHLORIDE 0.9% 1,000 ML IV SCH (02:56)
[2019-11-22] MEDS: chlordiazePOXIDE 25 MG CAPSULE PO SCH (09:03)
[2019-11-22 11:30] VITALS: BP 134/89
== END 2019-11-22 13:30 | disposition home or self-care (01) ==
LOC: EDUNIT# → EDBD → N.EDINP 23:41 → N.ED 23:41 → SUATTDRO 11-21 02:17 → N.4E 11-21 03:55
PROVIDERS: ADMIT Internal Medicine; ATTEND Internal Medicine Cardiovascular Disease